=== PATIENT | male | born 1990 | race Two or more races ===

== ENCOUNTER 2021-02-14 20:36 | Emergency (ER) | payer BC ==
[~2021-02-14] VITALS: Ht 180.3 cm; Wt 75.6 kg
[2021-02-14] MEDS ORDERED: ONDANSETRON ODT 4 MG PO ONE (21:30)
[2021-02-14] MEDS ORDERED: MAALOX/HYOSCYAMINE/LIDOCAINE 45 ML BTL PO ONE (21:30)
[2021-02-14] MEDS ORDERED: ONDANSETRON ODT 4 MG ONE (21:34)
[2021-02-14] MEDS ORDERED: MAALOX/HYOSCYAMINE/LIDOCAINE 45 ML BTL ONE (21:34)
[2021-02-14 21:36] LABS: BASOPHILS % (AUTO) 1 % (0-1); EOSINOPHILS % (AUTO) 15 % (1-7); LYMPHOCYTES % (AUTO) 25 % (22-44); MEAN CORPUSCULAR HEMOGLOBIN 30.9 pg (27.5-34.5); MEAN CORPUSCULAR HGB CONC 34.3 g/dL (33.2-36.2); MEAN PLATELET VOLUME 8.6 fL (7.4-10.4); MONOCYTES % (AUTO) 5 % (2-9); NEUTROPHILS % (AUTO) 54 % (42-75); PLATELET COUNT 176 x10^3/uL (130-400); RED BLOOD COUNT 5.25 x10^6/uL (4.38-5.82); RED CELL DISTRIBUTION WIDTH 13.1 % (9.4-14.8)
[2021-02-14 21:44] LABS: ALANINE AMINOTRANSFERASE 17 U/L (12-78); ALBUMIN 3.7 g/dL (3.4-5.0); ANION GAP 5 mmol/L (5-15); CALCIUM 8.8 mg/dL (8.5-10.1); CHLORIDE 106 mmol/L (98-107); CREATININE 0.95 mg/dL (0.7-1.3)
[2021-02-14 21:46] LABS: ALKALINE PHOSPHATASE 54 U/L (45-117); BILIRUBIN,TOTAL 0.6 mg/dL (0.2-1.0); TOTAL PROTEIN 7.3 g/dL (6.4-8.2)
--- NOTE | 2021-02-14 22:25 | NUR ---
Pt presents to ER with complaints of epigastric pain, nausea, and diarrhea. Pt states that the pain also radiates to his back. A&O x4, speaking in full sentences, ambulatory with steady gait, connected to BP and O2 monitors. VSS
--- NOTE | 2021-02-14 22:27 | NUR ---
Pt reports that medication helped but he thinks that the pain "might come back soon, I can feel it" when asked to clarify if he is still having pain at the moment he responded "maybe a little bit, right here" and pointed to the epigastric area
[2021-02-14 23:04] VITALS: BP 106/62
== END 2021-02-14 23:42 | disposition home or self-care (01) ==
LOC: ED 21:00
DX: K29.00 Acute gastritis without bleeding (principal); R10.13 Epigastric pain
CPT/HCPCS: 36415; 80053; 83690; 85025; 99283; Q0162